=== PATIENT | female | born 1960 | race African-American/Black ===

== ENCOUNTER 2020-04-24 14:27 | Emergency (ER) | payer OTHER ==
[~2020-04-24] VITALS: Ht 162.6 cm; Wt 52.0 kg
[2020-04-24] MEDS ORDERED: SODIUM CHLORIDE 0.9% 1,000 ML IV ONE (15:37)
[2020-04-24 16:12] LABS: BASOPHILS % 0.3 % (0.0-2.0); EOSINOPHILS % 0.2 % (0.0-5.0); HEMATOCRIT. 45.9 % (36.0-48.0); HEMOGLOBIN. 15.4 g/dL (12.0-16.0); LYMPHOCYTES % 10.2 % (20.0-50.0); MEAN CORPUSCULAR HEMOGLOBIN 32.8 pg (28.0-32.0); MEAN CORPUSCULAR VOLUME 97.7 fL (81.0-99.0); MEAN PLATELET VOLUME 8.8 fl (7.4-10.4); MONOCYTES % 4.5 % (2.0-8.0); NEUTROPHILS % 84.8 % (40.0-76.0); PLATELET 290 x1000/uL (130-400); RED BLOOD CELL COUNT 4.69 mill/uL (4.2-5.4)
[2020-04-24 16:15] LABS: CHLORIDE 105 mEq/L (98-107)
[2020-04-24] MEDS ORDERED: METOCLOPRAMIDE HCL 10MG/2ML VIAL IV ONE (16:30)
[2020-04-24 21:03] VITALS: BP 147/105
== END 2020-04-24 21:26 | disposition short-term general hospital (02) ==
LOC: ER 14:27
DX: R11.2 Nausea with vomiting, unspecified (principal); R07.89 Other chest pain; I48.20 Chronic atrial fibrillation, unspecified; E87.0 Hyperosmolality and hypernatremia; Z79.01 Long term (current) use of anticoagulants
CPT/HCPCS: 36415; 71045; 80053; 83880; 84484; 85025; 93005; 96361; 96374; 99285; J2765; J7030

== ENCOUNTER 2020-06-06 07:58 | Emergency (ER) | payer OTHER ==
[~2020-06-06] VITALS: Ht 157.5 cm; Wt 45.0 kg
[2020-06-06] MEDS ORDERED: SODIUM CHLORIDE 0.9% 1000ML BAG (SEPSIS BOLUS) IV ONE (09:15)
[2020-06-06 09:21] LABS: BASOPHILS % 0.6 % (0.0-2.0); EOSINOPHILS % 0.7 % (0.0-5.0); HEMATOCRIT. 30.1 % (36.0-48.0); HEMOGLOBIN. 10.1 g/dL (12.0-16.0); LYMPHOCYTES % 27.2 % (20.0-50.0); MEAN CORPUSCULAR HEMOGLOBIN 29.7 pg (28.0-32.0); MEAN CORPUSCULAR VOLUME 88.8 fL (81.0-99.0); MONOCYTES % 5.5 % (2.0-8.0); PLATELET 330 x1000/uL (130-400); RED BLOOD CELL COUNT 3.39 mill/uL (4.2-5.4)
[2020-06-06 09:29] LABS: CHLORIDE 97 mEq/L (98-107)
[2020-06-06 09:32] LABS: INR 1.4; PROTHROMBIN TIME 14.6 sec (9.6-11.0)
[2020-06-06] MEDS ORDERED: MAGNESIUM 2 G PREMIX 50 ML IV ONE (10:00)
[2020-06-06] MEDS ORDERED: POTASSIUM CHLORIDE 20MEQ TABLET SR PO ONE (10:00)
[2020-06-06 11:02] LABS: BG BASE EXCESS 17.4 mmol/L (-2.0-2.0); BG CARBOXYHEMOGLOBIN 1.2 % (0.5-1.5); BG FRACTION INSPIRED OXYGEN 21; BG HCO3 ACT 41.1 mmol/L (22.0-26.0); BG METHEMOGLOBIN 0.3 % (0.0-1.5); BG OXYHEMOGLOBIN 95.5 % (94.0-97.0); BG PCO2 45.7 mmHg (35.0-45.0); BG PH 7.572 (7.350-7.450); BG PO2 98.1 mmHg (75.0-100.0); BG SAMPLE SITE RIGHT BRACHIAL; BG TOTAL HEMOGLOBIN 7.4 g/dL (12.0-18.0); BG VENT MODE ROOM AIR
[2020-06-06 11:30] VITALS: BP 117/72
== END 2020-06-06 12:29 | disposition short-term general hospital (02) ==
LOC: ER 08:04 → EDBEDREQTM 10:03 → EDBEDREQSVC 10:03 → EDBEDREQ 10:03 → ER 12:29 → CANBEDREQ 16:08
DX: E87.6 Hypokalemia (principal)
CPT/HCPCS: 36415; 36600; 70450; 71045; 80053; 82375; 82805; 83605; 83735; 84145; 84484; 85025; 85610; 87040; 93005; 96361; 96365; 96366; 99285; J3475; J7030